=== PATIENT | female | born 1995 | race Caucasian/White ===

== ENCOUNTER 2016-12-18 21:41 | Emergency (ER) | payer OTHER ==
[2016-12-18] MEDS ORDERED: IBUPROFEN 400 MG TABLET (FP) PO ONE (21:52)
[2016-12-18 21:54] VITALS: BP 121/77; PULSE 109; TEMP 99.1; BMI 39.6
[2016-12-18] MEDS ORDERED: ACETAMINOPHEN 325 MG TABLET (FP) ONE (22:08)
--- NOTE | 2016-12-18 22:09 | PDOC ---
History of Present Illness - General Chief Complaint: Respiratory Stated Complaint: COLD SYMPTOMS Time Seen by Provider: 12/18/16 21:51 History Source: Patient - History of Present Illness Timing/Duration: reports: other Severity: reports: mild Associated Symptoms: reports: cough, fever/chills, nasal congestion. denies: chest pain/soreness, earache, muscle aches, shortness of breath, sore throat, wheezing Past History - Past Medical History Allergies/Adverse Reactions: Allergies Allergy/AdvReac Type Severity Reaction Status Date / Time No Known Allergies Allergy Verified 12/18/16 21:50 Home Medications: Ambulatory Orders Dextromethorphan Hb/Doxylamine [Robitussin Nighttime Cough Dm] 10 ml PO QID PRN #118 ml 03/25/15 Azithromycin [Zithromax Z-SHON (5 DAYS) -] 250 mg PO ASDIR #6 tablet 03/30/15 Ibuprofen [Motrin -] 400 mg PO TID 03/30/15 Ibuprofen [Motrin] 800 mg PO TID #20 tablet 03/30/15 Other medical history: denies - Immunization History Immunization Up to Date: Yes - Psycho/Social/Smoking Cessation Hx Suicidal Ideation: No Smoking Status: No Smoking History: Never smoked Have you smoked in the past 12 months: No Number of Cigarettes Smoked Daily: 0 Hx Alcohol Use: No Drug/Substance Use Hx: No Review of Systems - Review of Systems Constitutional: Yes: Chills, Fever HEENTM: Yes: Nose Congestion. No: Ear Pain, Throat Pain Respiratory: Yes: Cough. No: Shortness of Breath, Wheezing Cardiac (ROS): No: Chest Pain ABD/GI: No: Diarrhea, Nausea, Vomiting *Physical Exam - Vital Signs Last Vital Signs Temp Pulse Resp BP Pulse Ox 99.1 F 109 H 20 121/77 99 12/18/16 21:49 12/18/16 21:49 12/18/16 21:49 12/18/16 21:49 12/18/16 21:49 - Physical Exam General Appearance: Yes: Appropriately Dressed. No: Apparent Distress HEENT: positive: Normal ENT Inspection, TMs Normal, Pharynx Normal, Muffled/ Hoarse voice. negative: Scleral Icterus (R), Scleral Icterus (L) Neck: positive: Supple. negative: Lymphadenopathy (R), Lymphadenopathy (L) Respiratory/Chest: positive: Lungs Clear, Normal Breath Sounds. negative: Respiratory Distress Cardiovascular: positive: Regular Rate, S1, S2 Gastrointestinal/Abdominal: positive: Soft. negative: Tender Integumentary: positive: Dry, Warm Neurologic: positive: Fully Oriented, Alert, Normal Mood/Affect Medical Decision Making - Medical Decision Making 12/18/16 22:00 21 yo F, no sig hx, here w/ dry cough, nasal congestion, hoarseness and low grade fever x 5 days. Taking otc meds w/ some relief. No sob or wheezing. No sick contacts or recent travel. See exam URI M/l viral Low grade fever w/ mild tachycardia in ED w/ hoarseness, exam unremarkable otherwise -Dc w/ supportive tx 12/18/16 22:09 *DC/Admit/Observation/Transfer Diagnosis at time of Disposition: Upper respiratory infection Qualifiers: URI type: unspecified viral URI Qualified Code(s): J06.9 - Acute upper respiratory infection, unspecified; B97.89 - Other viral agents as the cause of diseases classified elsewhere - Discharge Dispostion Disposition: HOME Condition at time of disposition: Good - Patient Instructions Printed Discharge Instructions: DI for Viral Upper Respiratory Infection -- Adult Additional Instructions: Maintain adequate hydration, rest and take over the counter medications as needed
[2016-12-18] MEDS ORDERED: ACETAMINOPHEN 325 MG TABLET (FP) PO ONE (22:13)
== END 2016-12-18 22:18 | disposition home or self-care (01) ==
LOC: JER 21:41 → JERFT 21:41
DX: J06.9 Acute upper respiratory infection, unspecified (principal); B97.89 Other viral agents as the cause of diseases classified elsewhere
CPT/HCPCS: 99281-25

== ENCOUNTER 2018-10-20 18:11 | Emergency (ER) | payer OTHER ==
[2018-10-20 18:16] VITALS: BP 144/86; TEMP 98.4; BMI 36.6
[2018-10-20] MEDS ORDERED: ACETAMINOPHEN 325 MG TABLET (FP) PO ONE (19:39)
[2018-10-20] MEDS ORDERED: RANITIDINE HCL 150 MG TABLET (FP) PO ONE (19:40)
--- NOTE | 2018-10-20 19:43 | PDOC ---
History of Present Illness - General Chief Complaint: Chest Pain Stated Complaint: CHEST AND LEFT ARM PAIN Time Seen by Provider: 10/20/18 19:25 History Source: Patient - History of Present Illness Initial Comments: 10/20/18 19:40 23 year old female c/o left sided chest pain radiating to left arm worse after eating and moving. patient was seen at [facility] ER 5 days ago blood work, EKG left US negative. denies nausea, vomiting, diaphoresis, Past History - Past Medical History Allergies/Adverse Reactions: Allergies Allergy/AdvReac Type Severity Reaction Status Date / Time ibuprofen [From Advil] Allergy Verified 10/20/18 18:16 Home Medications: Ambulatory Orders Ranitidine HCl [Zantac] 150 mg PO DAILY #30 tablet 10/20/18 COPD: No - Immunization History Immunization Up to Date: Yes - Suicide/Smoking/Psychosocial Hx Smoking Status: No Smoking History: Never smoked Have you smoked in the past 12 months: No Number of Cigarettes Smoked Daily: 0 Hx Alcohol Use: No Drug/Substance Use Hx: No Review of Systems - Review of Systems Able to Perform ROS?: Yes Is the patient limited [place] proficient: No Constitutional: No: Symptoms Reported, See HPI, Chills, Diaphoresis, Fever, Loss of Appetite, Malaise, Night Sweats, Weakness, Weight Stable, Unintentional Wgt. Loss, Unexplained wgt Loss, Other HEENTM: No: Symptoms Reported, See HPI, Eye Pain, Blurred Vision, Tearing, Recent change in vision, Double Vision, Cataracts, Ear Pain, Ocular Prothesis, Ear Discharge, Nose Pain, Nose Congestion, Tinnitus, Nose Bleeding, Hearing Loss , Throat Pain, Throat Swelling, Mouth Pain, Dental Problems, Difficulty Swallowing, Mouth Swelling, Other Respiratory: No: Symptoms reported, See HPI, Cough, Orthopnea, Shortness of Breath, SOB with Exertion, SOB at Rest, Stridor, Wheezing, Productive cough, Hemoptysis, Other Cardiac (ROS): Yes: Chest Pain. No: Symptoms Reported, See HPI, Edema, Irregular Heart Rate, Lightheadedness, Palpitations, Syncope, Chest Tightness, Other *Physical Exam - Vital Signs Last Vital Signs Temp Pulse Resp BP Pulse Ox 98.4 F 94 H 20 144/86 99 10/20/18 18:13 10/20/18 20:55 10/20/18 20:55 10/20/18 18:13 10/20/18 20:55 - Physical Exam General Appearance: Yes: Appropriately Dressed Respiratory/Chest: positive: Chest Tender (left sided chest tenderness and moving left arm), Lungs Clear, Normal Breath Sounds Cardiovascular: positive: Tachycardia Gastrointestinal/Abdominal: positive: Normal Bowel Sounds, Soft. negative: Tender Extremity: positive: Normal Capillary Refill, Normal Inspection, Normal Range of Motion Integumentary: positive: Normal Color, Dry, Warm Neurologic: positive: Fully Oriented, Alert, Normal Mood/Affect Heart Score/ECG Review - ECG Intrepretation Rhythm: Regular Rhythm Comment:: 10/20/18 21:08 Sinus tachycardia: 106 bpm ED Treatment Course - Medications Given in the ED: ED Medications Discontinued Medications Generic Name Dose Route Start Last Admin Trade Name Freq PRN Reason Stop Dose Admin Acetaminophen 975 mg 10/20/18 19:39 10/20/18 20:47 Tylenol - PO 10/20/18 19:40 975 mg ONCE ONE Administration Ranitidine HCl 300 mg 10/20/18 19:40 10/20/18 20:48 Zantac - PO 10/20/18 19:41 300 mg ONCE ONE Administration Medical Decision Making - Medical Decision Making 10/20/18 21:03 A: costochondiritis P: nsaids allergy : hives. tylenol and zantac patient advised to follow up with pcp repeat VItals signs HR 94, 02 sat 100% will d/ chome *DC/Admit/Observation/Transfer Diagnosis at time of Disposition: Acute costochondritis - Discharge Dispostion Disposition: HOME - Prescriptions Prescriptions: Ranitidine HCl [Zantac] 150 mg PO DAILY #30 tablet - Referrals Referrals: Shen Jung MD [Staff Physician] - Call tomorrow - Patient Instructions Printed Discharge Instructions: DI for Chest Pain Additional Instructions: take Tylenol every 6 hours as needed for pain. apply ice / heat to the area follow up with your pcp as soon as possible, - Post Discharge Activity Forms/Work/School Notes: Back to Work
--- NOTE | 2018-10-20 20:01 | PDOC ---
*Physical Exam - Vital Signs Last Vital Signs Temp Pulse Resp BP Pulse Ox 98.4 F 118 H 16 144/86 98 10/20/18 18:13 10/20/18 18:13 10/20/18 18:13 10/20/18 18:13 10/20/18 18:13 Medical Decision Making - Medical Decision Making 10/20/18 20:00 Patient seen by the advanced practice provider under my direct supervision. Ancillary testing reviewed as necessary. I agree with plan as outlined by the advanced practice provider. *DC/Admit/Observation/Transfer Diagnosis at time of Disposition: Acute costochondritis - Discharge Dispostion Disposition: HOME Condition at time of disposition: Improved - Prescriptions Prescriptions: Ranitidine HCl [Zantac] 150 mg PO DAILY #30 tablet - Referrals Referrals: Shen Jung MD [Staff Physician] - Call tomorrow - Patient Instructions Printed Discharge Instructions: DI for Chest Pain Additional Instructions: take Tylenol every 6 hours as needed for pain. apply ice / heat to the area follow up with your pcp as soon as possible, - Post Discharge Activity Forms/Work/School Notes: Back to Work
[2018-10-20] MEDS ORDERED: ACETAMINOPHEN 325 MG TABLET (FP) ONE (20:22)
[2018-10-20] MEDS ORDERED: RANITIDINE HCL 150 MG TABLET (FP) ONE (20:22)
[2018-10-20 20:56] VITALS: PULSE 94
--- NOTE | 2018-10-21 14:46 | EKG ---
Test Reason : Blood Pressure : / mmHG Vent. Rate : 106 BPM Atrial Rate : 106 BPM P-R Int : 170 ms QRS Dur : 088 ms QT Int : 346 ms P-R-T Axes : 047 050 021 degrees QTc Int : 459 ms SINUS TACHYCARDIA OTHERWISE NORMAL ECG NO PREVIOUS ECGS AVAILABLE Confirmed by MD CARINA, SHANTA ([id number]) on 10/21/2018 2:46:03 PM Referred By: Confirmed By:SHANTA LIM MD
== END 2018-10-20 21:42 | disposition home or self-care (01) ==
LOC: JER 18:11
DX: M94.0 Chondrocostal junction syndrome [Tietze] (principal)
CPT/HCPCS: 93005; 93010; 99282-25

== ENCOUNTER 2019-01-21 22:43 | Emergency (ER) | payer OTHER ==
[2019-01-21 22:53] VITALS: BP 135/84; PULSE 98; TEMP 99; BMI 40.2
--- NOTE | 2019-01-21 23:50 | PDOC ---
History of Present Illness - General Chief Complaint: Pain Stated Complaint: LEFT ARM PAIN Time Seen by Provider: 01/21/19 23:15 History Source: Patient Exam Limitations: No Limitations Past History - Past Medical History Allergies/Adverse Reactions: Allergies Allergy/AdvReac Type Severity Reaction Status Date / Time ibuprofen [From Advil] Allergy Verified 01/21/19 22:53 Home Medications: Ambulatory Orders Ranitidine HCl [Zantac] 150 mg PO DAILY #30 tablet 10/20/18 COPD: No - Immunization History Immunization Up to Date: Yes - Psycho Social/Smoking Cessation Hx Smoking Status: No Smoking History: Never smoked Have you smoked in the past 12 months: No Number of Cigarettes Smoked Daily: 0 Information on smoking cessation initiated: No Hx Alcohol Use: No Drug/Substance Use Hx: No *Physical Exam - Vital Signs Last Vital Signs Temp Pulse Resp BP Pulse Ox 99.0 F 98 H 19 135/84 98 01/21/19 22:51 01/21/19 22:51 01/21/19 22:51 01/21/19 22:51 01/21/19 22:51 - Physical Exam General Appearance: No: Apparent Distress Musculoskeletal: positive: Decreased Range of Motion (of L shoulder) Extremity: positive: Other (+TTP along L clavicle, no obvious step-off palpable , +LROM of L shoulder, no obvious deformity noted, LUE neurovascularly intact; FROM of L elbow and wrist) Neurologic: positive: Alert, Normal Mood/Affect ED Treatment Course - RADIOLOGY Radiology Studies Ordered: Category Date Time Status CLAVICLE-LEFT SIDE [RAD] Stat Radiology 01/21/19 23:27 Ordered HUMERUS-LEFT [RAD] Stat Radiology 01/21/19 23:27 Ordered SHOULDER-LEFT [RAD] Stat Radiology 01/21/19 23:27 Ordered Medical Decision Making - Medical Decision Making 23 y/o F with no sig pmh presents with L arm injury from today. Mentions she caught a heavy box with L arm and heard a pop. Denies other injuries, numbness, tingling. R/O fracture/dislocation Plan: Xray, pain meds 01/21/19 23:49 No fracture/dislocation noted on imaging Patient provided sling for comfort will refer to ortho stable for dc 01/22/19 00:05 Discharge - Discharge Information Problems reviewed: Yes Clinical Impression/Diagnosis: Injury of left shoulder Qualifiers: Encounter type: initial encounter Qualified Code(s): S49.92XA - Unspecified injury of left shoulder and upper arm, initial encounter Condition: Stable Disposition: HOME - Admission No - Additional Discharge Information Prescription Drug Monitoring Program (I-STOP) results: I-STOP not reviewed - Follow up/Referral Referrals: Karyna Samson MD [Primary Care Provider] - Patrick Ludwig MD [Staff Physician] - 2 Days - Patient Discharge Instructions Patient Printed Discharge Instructions: How to Use a Sling Additional Instructions: Thank you for choosing [facility]. It was a pleasure taking care of you. You may take Tylenol 650 mg every 6 hours by mouth as needed for mild to moderate pain. Do not take more than 4000 mg of Tylenol in 1 day. Wear the sling as needed for comfort Ice the site of injury Follow-up with orthopedics for further eval Return to the Emergency Department if your symptoms worsen or persist or have other concerning symptoms. - Post Discharge Activity
== END 2019-01-22 00:15 | disposition home or self-care (01) ==
LOC: JER 22:43
DX: S49.92XA Unspecified injury of left shoulder and upper arm, initial encounter (principal); X58.XXXA Exposure to other specified factors, initial encounter; Y93.89 Activity, other specified; Y92.89 Other specified places as the place of occurrence of the external cause; Y99.9 Unspecified external cause status; Z88.8 Allergy status to other drugs, medicaments and biological substances
CPT/HCPCS: 73000-TC-LT-FY; 73030-TC-LT-FY; 73060-TC-LT-FY; 99281-25

== ENCOUNTER 2019-05-06 15:37 | Emergency (ER) | payer OTHER ==
--- NOTE | 2019-05-06 15:53 | PDOC ---
Rapid Medical Evaluation Time Seen by Provider: 05/06/19 15:49 Medical Evaluation: Allergies Allergy/AdvReac Type Severity Reaction Status Date / Time ibuprofen [From Advil] Allergy Verified 01/21/19 22:53 05/06/19 15:51 Pt presents for R sided neck pain/facial pain. She states she has been on Cefdinir from her ENT with some relief of her symptoms. She states her last dose is tomorrow. Also admits toe ear ache. No dental pain. Exam: Glands feel unremarkable, Throat s/p tonsillectomy. No erythema. No gross neurodeficit Orders: Nothing Pt to proceed to the ER for further evaluation Discharge Disposition - Diagnosis Facial pain - Referrals - Patient Instructions - Post Discharge Activity
[2019-05-06 15:54] VITALS: BP 130/84; PULSE 89; TEMP 98.2; BMI 43.7
--- NOTE | 2019-05-06 16:11 | PDOC ---
History of Present Illness - General Chief Complaint: Pain Stated Complaint: RT. SIDE NECK PAIN Time Seen by Provider: 05/06/19 15:49 - History of Present Illness Initial Comments: 05/06/19 16:09 23-year-old female without comorbidities presents for evaluation of right-sided ear and facial pain x2 weeks she is finishing a course of cephalosporin no systemic symptoms Past History - Past Medical History Allergies/Adverse Reactions: Allergies Allergy/AdvReac Type Severity Reaction Status Date / Time ibuprofen [From Advil] Allergy Verified 01/21/19 22:53 Home Medications: Ambulatory Orders Ranitidine HCl [Zantac] 150 mg PO DAILY #30 tablet 10/20/18 COPD: No - Immunization History Immunization Up to Date: Yes - Psycho Social/Smoking Cessation Hx Smoking Status: No Smoking History: Never smoked Have you smoked in the past 12 months: No Number of Cigarettes Smoked Daily: 0 Information on smoking cessation initiated: No Hx Alcohol Use: No Drug/Substance Use Hx: No Review of Systems - Review of Systems Constitutional: No: Fever *Physical Exam - Vital Signs Last Vital Signs Temp Pulse Resp BP Pulse Ox 98.2 F 89 20 130/84 99 05/06/19 15:51 05/06/19 15:51 05/06/19 15:51 05/06/19 15:51 05/06/19 15:51 - Physical Exam 05/06/19 16:09 GENERAL: The patient is awake, alert, and fully oriented, in no acute distress. HEAD: Normal with no signs of trauma. EYES: sclera anicteric, conjunctiva clear. ENT: Ears normal tympanic membranes normal oropharynx clear uvula midline; mild tenderness about the periauricular area and the angle of the mandible NECK: Normal range of motion LUNGS: Breath sounds equal, clear to auscultation bilaterally. No wheezes, and no crackles. HEART: S1 and S2 without murmur, rub or gallop. ABDOMEN: Soft, nontender, normoactive bowel sounds. No guarding, no rebound. No masses. EXTREMITIES: Normal range of motion, no edema. No clubbing or cyanosis. No cords, erythema, or tenderness. NEUROLOGICAL: Cranial nerves II through XII grossly intact. Normal speech, normal gait. PSYCH: Normal mood, normal affect. SKIN: Warm, Dry, normal turgor, no rashes or lesions noted. Medical Decision Making - Medical Decision Making 05/06/19 16:10 There is no supraclavicular or periauricular or anterior posterior cervical adenopathy. 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 Tylenol for pain as directed. Follow-up with your ear nose and throat doctor in 2 to 3 days for further evaluation and treatment options. - Post Discharge Activity
== END 2019-05-06 16:55 | disposition home or self-care (01) ==
LOC: JERFT 15:37
DX: G50.1 Atypical facial pain (principal); Z88.8 Allergy status to other drugs, medicaments and biological substances
CPT/HCPCS: 99281-25

== ENCOUNTER 2019-07-10 23:04 | Emergency (ER) | payer OTHER ==
[2019-07-10] MEDS ORDERED: ACETAMINOPHEN 325 MG TABLET (FP) PO ONE (23:10)
--- NOTE | 2019-07-10 23:19 | PDOC ---
Rapid Medical Evaluation Chief Complaint: Tachycardia Time Seen by Provider: 07/10/19 23:09 Medical Evaluation: Allergies Allergy/AdvReac Type Severity Reaction Status Date / Time ibuprofen [From Advil] Allergy Verified 01/21/19 22:53 I have performed a brief in-person evaluation of this patient. The patient presents with a chief complaint of: 23 y/o with no sig pmh presents with fever of 100.6 today; had mild temp since 5 days ago; also with mild runny nose; +cough x 1 week; denies cp, sob, abd pain, n/v/d, recent travel. No known contact with COVID19 patient. 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 Now her school is closed Pertinent physical exam findings: In NAD, +tachycardic, lungs clear I have ordered the following: Tachycardic 130-140 Given Tylenol for low grade fever COVID, flu, RSV, CXR, EKG The patient will proceed to the ED for further evaluation. 07/10/19 23:11
[2019-07-10 23:30] VITALS: BMI 43.9
[2019-07-10] MEDS ORDERED: SODIUM CHLORIDE 1,000 ML IV STA (23:45)
--- NOTE | 2019-07-11 00:03 | PDOC ---
History of Present Illness - General Chief Complaint: Tachycardia Stated Complaint: FEVER Time Seen by Provider: 07/10/19 23:09 History Source: Patient Exam Limitations: No Limitations - History of Present Illness Initial Comments: 23 yo F no significant PMH presents with flu-like symptoms for the past 3 days. She states she has multiple classmates who have the flu. She has had fever, chills, cough. She states the cough is non-productive, although she feels chest congestion. Unable to expectorate anything. Denies vomiting. Has been tolerating PO. Past History - Past Medical History Allergies/Adverse Reactions: Allergies Allergy/AdvReac Type Severity Reaction Status Date / Time ibuprofen [From Advil] Allergy Verified 07/10/19 23:38 Home Medications: Ambulatory Orders NK [No Known Home Medication] 07/10/19 COPD: No - Immunization History Immunization Up to Date: Yes - Psycho Social/Smoking Cessation Hx Smoking Status: No Smoking History: Never smoked Have you smoked in the past 12 months: No Number of Cigarettes Smoked Daily: 0 Hx Alcohol Use: No Drug/Substance Use Hx: No Review of Systems - Review of Systems Able to Perform ROS?: Yes Comments:: GENERAL/CONSTITUTIONAL: No fever or chills. No weakness. HEAD, EYES, EARS, NOSE AND THROAT: No change in vision. No ear pain or discharge. No sore throat. CARDIOVASCULAR: No chest pain or shortness of breath. RESPIRATORY: +Cough. No wheezing or hemoptysis. GASTROINTESTINAL: No nausea, vomiting, diarrhea or constipation. GENITOURINARY: No dysuria, frequency, or change in urination. MUSCULOSKELETAL: No joint or muscle swelling or pain. No neck or back pain. SKIN: No rash. NEUROLOGIC: No headache, vertigo, loss of consciousness, or change in strength/sensation. ENDOCRINE: No increased thirst. No abnormal weight change. HEMATOLOGIC/LYMPHATIC: No anemia, easy bleeding, or history of blood clots. ALLERGIC/IMMUNOLOGIC: No hives or skin allergy. *Physical Exam - Vital Signs Last Vital Signs Temp Pulse Resp BP Pulse Ox 100.3 F H 135 H 20 154/82 100 07/10/19 23:07 07/10/19 23:07 07/10/19 23:07 07/10/19 23:07 07/10/19 23:07 - Physical Exam GENERAL: Awake, alert, and fully oriented, in no acute distress HEAD: No signs of trauma EYES: PERRLA, EOMI, sclera anicteric, conjunctiva clear ENT: Auricles normal inspection, hearing grossly normal, nares patent, oropha rynx clear without exudates. Moist mucosa NECK: Normal ROM, supple, no lymphadenopathy, JVD, or masses LUNGS: Breath sounds equal, clear to auscultation bilaterally. No wheezes, and no crackles HEART: Tachycardic with regular rhythm, normal S1 and S2, no murmurs, rubs or gallops ABDOMEN: Soft, nontender, normoactive bowel sounds. No guarding, no rebound. No masses EXTREMITIES: Normal range of motion, no edema. No clubbing or cyanosis. No cords, erythema, or tenderness NEUROLOGICAL: Cranial nerves II through XII grossly intact. Normal speech, normal gait. Motor and sensation intact SKIN: Warm, dry, normal turgor, no rashes or lesions noted. Heart Score/ECG Review - ECG Impressions Comment:: EKG read 23:59- Sinus tach 120, no acute ST/T changes ED Treatment Course - LABORATORY CBC & Chemistry Diagram: 07/11/19 00:01 07/11/19 00:01 - Medications Given in the ED: ED Medications Discontinued Medications Generic Name Dose Route Start Last Admin Trade Name Freq PRN Reason Stop Dose Admin Acetaminophen 975 mg 07/10/19 23:10 07/10/19 23:16 Tylenol - PO 07/10/19 23:11 975 mg ONCE ONE Administration Medical Decision Making - Medical Decision Making 07/11/19 00:24 Pt swabbed for flu/RSV/Covid19. Will give tylenol and IV fluids. CXR to r/o infiltrate. Likely DC home. 07/11/19 05:42 Vital signs improved. Patient with no SOB, cp. Stable for DC home. COVID instructions given, recommended quarantine at home. Discharge - Discharge Information Problems reviewed: Yes Clinical Impression/Diagnosis: Upper respiratory infection Qualifiers: URI type: unspecified URI Qualified Code(s): J06.9 - Acute upper respiratory infection, unspecified Condition: Stable Disposition: HOME - Admission No - Follow up/Referral - Patient Discharge Instructions Patient Printed Discharge Instructions: DI for Viral Syndrome, [facility]-Coronavirus Instructions - Post Discharge Activity
[2019-07-11 00:11] LABS: BASO % 0.8 % (0-2.0); EOS % 1.5 % (0-4.5); HEMATOCRIT 39.6 % (32.4-45.2); HEMOGLOBIN 13.2 GM/dL (10.7-15.3); LYMPH % 24.2 % (8-40); MCH 28.3 pg (25.7-33.7); MCHC 33.2 g/dl (32.0-36.0); MEAN CELL VOLUME 85.2 fl (80-96); MEAN PLT VOLUME 6.8 fl (7.5-11.1); MONO % 7.5 % (3.8-10.2); PLATELET COUNT 430 K/MM3 (134-434); RBC 4.65 M/mm3 (3.60-5.2); RDW 13.1 % (11.6-15.6); WHITE BLOOD COUNT 5.9 K/mm3 (4.0-10.0)
[2019-07-11 00:27] LABS: ALBUMIN 3.8 g/dl (3.4-5.0); BILIRUBIN,TOTAL 0.2 mg/dL (0.2-1); CALCIUM 8.8 mg/dL (8.5-10.1); CREATININE 0.8 mg/dL (0.55-1.3); POTASSIUM 3.8 mmol/L (3.5-5.1); TOT PROT 8.1 g/dl (6.4-8.2)
[2019-07-11] MEDS ORDERED: SODIUM CHLORIDE 1,000 ML IV STA (01:33)
[2019-07-11 05:20] VITALS: BP 120/76; PULSE 99; TEMP 98.6
--- NOTE | 2019-07-13 09:16 | EKG ---
Test Reason : Blood Pressure : / mmHG Vent. Rate : 120 BPM Atrial Rate : 120 BPM P-R Int : 182 ms QRS Dur : 090 ms QT Int : 298 ms P-R-T Axes : 059 059 050 degrees QTc Int : 421 ms SINUS TACHYCARDIA OTHERWISE NORMAL ECG WHEN COMPARED WITH ECG OF 20-OCT-2018 18:11, NO SIGNIFICANT CHANGE WAS FOUND Confirmed by Joyce Davis ([id number]) on 07/13/2019 9:15:32 AM Referred By: Confirmed By:Joyce Davis
== END 2019-07-11 05:49 | disposition home or self-care (01) ==
LOC: JER 23:04
PROC: 3E0337Z Introduction of Electrolytic and Water Balance Substance into Peripheral Vein, Percutaneous Approach (ICD-10-PCS; principal; 2019-07-10)
DX: Z03.818 Encounter for observation for suspected exposure to other biological agents ruled out (principal); J06.9 Acute upper respiratory infection, unspecified; Z88.5 Allergy status to narcotic agent; Z88.6 Allergy status to analgesic agent
CPT/HCPCS: 36415; 71045-TC-FY; 80053; 84703; 85025; 87798; 87804; 87807; 93005; 93010; 96360; 96361; 99285-25; J7030; U0002

== ENCOUNTER 2020-11-10 16:26 | Emergency (ER) | payer OTHER ==
[2020-11-10 16:56] VITALS: TEMP 98.2; BMI 38.5
[2020-11-10] MEDS ORDERED: ACETAMINOPHEN 1000 MG/100 ML VIAL (NON FORMULARY) IVPB ONE (17:38)
[2020-11-10] MEDS ORDERED: FAMOTIDINE 20 MG/50 ML IVPB 20 MG/50 ML MG IVPB ONE ×2 (17:38→17:51)
[2020-11-10] MEDS ORDERED: METOCLOPRAMIDE HCL INJECTION 10 MG/2 ML VIAL IVPB ONE (17:39)
[2020-11-10] MEDS ORDERED: METOCLOPRAMIDE HCL INJECTION 10 MG/2 ML VIAL ONE (17:51)
[2020-11-10] MEDS ORDERED: ACETAMINOPHEN INJECTION 100 ML IVPB ONE (17:51)
[2020-11-10 18:24] LABS: BASO % 0.3 % (0-2.0); EOS % 1.4 % (0-4.5); HEMATOCRIT 41.8 % (32.4-45.2); HEMOGLOBIN 14.3 GM/dL (10.7-15.3); LYMPH % 35.1 % (8-40); MCH 28.7 pg (25.7-33.7); MCHC 34.1 g/dl (32.0-36.0); MEAN CELL VOLUME 84.2 fl (80-96); MEAN PLT VOLUME 7.1 fl (7.5-11.1); MONO % 4.6 % (3.8-10.2); NEUT % 58.6 % (42.8-82.8); PLATELET COUNT 385 10^3/uL (134-434); RBC 4.97 M/mm3 (3.60-5.2); WHITE BLOOD COUNT 8.5 K/mm3 (4.0-10.0)
[2020-11-10 18:30] LABS: EPI CELLS 22 /uL (0-25.1); HYALINE CASTS 2 /uL (0-3.1); URINE APPEARANCE CLOUDY; URINE BACTERIA 494 /uL (0-1359); URINE BILIRUBIN NEGATIVE (NEGATIVE); URINE COLOR YELLOW; URINE GLUCOSE (UA) 3+ (NEGATIVE); URINE KETONE TRACE (NEGATIVE); URINE LEUK ESTERASE NEGATIVE (NEGATIVE); URINE NITRITE NEGATIVE (NEGATIVE); URINE PROTEIN NEGATIVE (NEGATIVE); URINE RBC 175 /uL (0-23.9); URINE UROBILINOGEN 0.2 mg/dL (0.2-1.0)
[2020-11-10 18:43] LABS: ALBUMIN 4.1 g/dl (3.4-5.0); CALCIUM 9.5 mg/dL (8.5-10.1)
[2020-11-10 18:47] LABS: CREATININE 0.5 mg/dL (0.55-1.3)
[2020-11-10 18:48] LABS: BILIRUBIN,TOTAL 0.3 mg/dL (0.2-1); TOT PROT 7.8 g/dl (6.4-8.2)
[2020-11-10 18:50] LABS: URINE WBC 64 /uL (0-25.8)
[2020-11-10 22:03] VITALS: BP 125/86; PULSE 71
== END 2020-11-10 22:03 | disposition home or self-care (01) ==
LOC: JER 16:26
PROC: 3E033NZ Introduction of Analgesics, Hypnotics, Sedatives into Peripheral Vein, Percutaneous Approach (ICD-10-PCS; principal; 2020-11-10)
PROC: 3E033GC Introduction of Other Therapeutic Substance into Peripheral Vein, Percutaneous Approach (ICD-10-PCS; 2020-11-10)
PROC: 3E033GC Introduction of Other Therapeutic Substance into Peripheral Vein, Percutaneous Approach (ICD-10-PCS; 2020-11-10)
DX: R10.11 Right upper quadrant pain (principal)
CPT/HCPCS: 36415; 76705-TC; 80053; 81003; 83690; 84703; 85025; 87086; 99284-25; J0131

== ENCOUNTER 2021-07-27 23:41 | Emergency (ER) | payer OTHER ==
[2021-07-28 00:18] VITALS: BP 113/77; PULSE 99; TEMP 98.9; BMI 38.7
[2021-07-28] MEDS ORDERED: ACETAMINOPHEN 500 MG TABLET (FP) PO ONE (01:12)
[2021-07-28] MEDS ORDERED: ACETAMINOPHEN 500 MG TABLET (FP) ONE (01:41)
== END 2021-07-28 03:11 | disposition home or self-care (01) ==
LOC: JER 23:41
DX: S91.209A Unspecified open wound of unspecified toe(s) with damage to nail, initial encounter (principal); W01.198A Fall on same level from slipping, tripping and stumbling with subsequent striking against other object, initial encounter
CPT/HCPCS: 73630-TC-RT-FY; 99283-25